=== PATIENT | female | born 1990 | race Caucasian/White ===

== ENCOUNTER 2018-11-23 21:47 | Emergency (ER) | payer SELFPAY, OTHER | END 2018-11-24 02:33 | disposition left against medical advice (07) | LOC: FTE 21:47 | DX: Z53.21 Procedure and treatment not carried out due to patient leaving prior to being seen by health care provider (principal) ==

== ENCOUNTER 2019-02-28 13:49 | Inpatient (IN) | payer MEDICAID, OTHER ==
[2019-02-28] MEDS: SOD CHLORIDE 0.9% 1,000 ML IV (15:45)
[2019-02-28 15:47] LABS: ADD MAN DIFF? NO
[2019-02-28 15:48] LABS: WHITE BLOOD COUNT 15.2 10^3/ul (4.8-10.8)
[2019-02-28 15:48] LABS: BASOPHILS % 0.2 % (0.0-2.0); EOSINOPHILS % 0.1 % (0.0-7.0); HEMATOCRIT 31.1 % (37.0-47.0); HEMOGLOBIN 10.3 g/dl (12.0-16.0); LYMPHOCYTES # 0.8 10^3/ul (0.8-2.9); LYMPHOCYTES % 5.1 % (15.0-51.0); MEAN CORPUSCULAR HEMOGLOBIN 27.2 pg (29.0-33.0); MEAN CORPUSCULAR HGB CONC 33.1 g/dl (32.0-37.0); MEAN CORPUSCULAR VOLUME 82.1 fl (82.0-101.0); MEAN PLATELET VOLUME 10.1 fl (7.4-10.4); MONOCYTE # 1.3 10^3/ul (0.3-0.9); MONOCYTES % 8.6 % (0.0-11.0); NEUTROPHIL # 12.8 10^3/ul (1.6-7.5); NEUTROPHILS % 84.5 % (39.0-77.0); PLATELET COUNT 250 10^3/UL (140-415); RED BLOOD COUNT 3.79 10^6/ul (4.20-5.40); RED CELL DISTRIBUTION WIDTH 12.5 % (11.5-14.5)
[2019-02-28] MEDS: KETOROLAC 30 MG INJ IV (15:50)
[2019-02-28 15:57] LABS: ADD UMIC YES; UR ASCORBIC ACID NEGATIVE (NEGATIVE); UR BACTERIA MANY /HPF (NONE SEEN); UR BILIRUBIN (Dip) NEGATIVE (NEGATIVE); UR BLOOD (Dip) 1+ mg/dL (NEGATIVE); UR CLARITY TURBID (CLEAR); UR COLOR AMBER (YELLOW); UR GLUCOSE (Dip) 3+ mg/dL (NEGATIVE); UR KETONES (Dip) TRACE mg/dL (NEGATIVE); UR LEUKOCYTE ESTERASE (Dip) 3+ Leu/ul (NEGATIVE); UR NITRITE (Dip) POSITIVE (NEGATIVE); UR RBC 4 /HPF (0-5); UR SPECIFIC GRAVITY (Dip) 1.011 (1.003-1.030); UR SQUAMOUS EPITHELIAL CELL MODERATE /HPF (FEW); UR TOTAL PROTEIN (Dip) 2+ mg/dl (NEGATIVE); UR UROBILINOGEN (Dip) 1+ mg/dL (NEGATIVE); UR WBC > 182 /HPF (0-5)
[2019-02-28 16:12] LABS: ALANINE AMINOTRANSFERASE 29 IU/L (13-69); ALBUMIN 3.5 g/dl (3.3-4.9); ALKALINE PHOSPHATASE 114 IU/L (42-121); ANION GAP 8 (5-13); ASPARTATE AMINO TRANSFERASE 19 IU/L (15-46); BLOOD UREA NITROGEN 3 mg/dl (7-20); CALCIUM 8.7 mg/dl (8.4-10.2); CARBON DIOXIDE 22 mmol/L (21-31); CHLORIDE 106 mmol/L (97-110); CREATININE 0.44 mg/dl (0.44-1.00); Estimated GFR > 60 mL/min (>60); GLUCOSE 139 mg/dl (70-220); POTASSIUM 3.5 mmol/L (3.5-5.1); SODIUM 136 mmol/L (135-144)
[2019-02-28] MEDS: CEFTRIAXONE 1 GM/50 ML (PMX) 50 ML IVPB (18:13)
[2019-02-28 19:00] LABS: LACTIC ACID 1.2 mmol/L (0.5-2.0)
[2019-02-28] MEDS: morphine 2 MG INJ IV (19:06)
[2019-02-28] MEDS ORDERED: ONDANSETRON 4 MG INJ IV (20:00)
[2019-02-28 20:40] LABS: LACTIC ACID 0.8 mmol/L (0.5-2.0)
[2019-03-01] MEDS: ACETAMINOPHEN 325 MG TAB PO (02:39)
[2019-03-01] MEDS ORDERED: HYDROCODONE/APAP (5/325) TAB PO (08:00)
[2019-03-01] MEDS ORDERED: SOD CHLORIDE 0.9% 1,000 ML IV (09:00)
[2019-03-01] MEDS ORDERED: ACETAMINOPHEN 325 MG TAB PO ×2 (09:00)
== END 2019-03-01 08:08 | disposition home or self-care (01) | DRG 833 ==
LOC: L-D 19:33 → FTE 13:49 → L-D 03-01 02:55
DX: O23.03 Infections of kidney in pregnancy, third trimester (principal); O09.33 Supervision of pregnancy with insufficient antenatal care, third trimester; Z3A.31 31 weeks gestation of pregnancy
CPT/HCPCS: 36415; 76805; 80053; 81001; 81025; 83605; 84702; 85025; 87040-91; 87086; 96361; 96365; 96375; 99285-25

== ENCOUNTER 2019-03-01 03:27 | Inpatient (IN) | payer MEDICAID ==
[2019-03-01] MEDS: SOD CHLORIDE 0.9% 1,000 ML IV ×6 (04:15→20:54)
[2019-03-01] MEDS: PRENATAL VITAMIN PO (09:29)
[2019-03-01] MEDS: LACTATED RINGER'S 1,000 ML IV (09:29)
[2019-03-01] MEDS: ACETAMINOPHEN 325 MG TAB PO ×2 (09:30→15:46)
[2019-03-01 10:24] LABS: INR 0.99; PROTIME 13.2 Sec (11.9-14.9)
[2019-03-01 10:25] LABS: PARTIAL THROMBOPLASTIN TIME 34.3 Sec (23.0-35.0)
[2019-03-01 11:02] LABS: ADD MAN DIFF? NO
[2019-03-01 11:05] LABS: BASOPHILS % 0.2 % (0.0-2.0); EOSINOPHILS % 0.2 % (0.0-7.0); HEMATOCRIT 27.9 % (37.0-47.0); HEMOGLOBIN 9.1 g/dl (12.0-16.0); LYMPHOCYTES # 0.7 10^3/ul (0.8-2.9); LYMPHOCYTES % 6.1 % (15.0-51.0); MEAN CORPUSCULAR HEMOGLOBIN 27.5 pg (29.0-33.0); MEAN CORPUSCULAR HGB CONC 32.6 g/dl (32.0-37.0); MEAN CORPUSCULAR VOLUME 84.3 fl (82.0-101.0); MEAN PLATELET VOLUME 10.7 fl (7.4-10.4); MONOCYTE # 1.1 10^3/ul (0.3-0.9); MONOCYTES % 9.9 % (0.0-11.0); NEUTROPHIL # 9.4 10^3/ul (1.6-7.5); NEUTROPHILS % 82.4 % (39.0-77.0); PLATELET COUNT 186 10^3/UL (140-415); RED BLOOD COUNT 3.31 10^6/ul (4.20-5.40); RED CELL DISTRIBUTION WIDTH 12.8 % (11.5-14.5)
[2019-03-01 11:05] LABS: WHITE BLOOD COUNT 11.4 10^3/ul (4.8-10.8)
[2019-03-01 14:16] LABS: HEPATITIS B SURFACE ANTIGEN NEGATIVE (NEGATIVE)
[2019-03-01 14:25] LABS: HIV 1&2 ANTIBODY NEGATIVE (NEGATIVE)
[2019-03-01] MEDS: CEFTRIAXONE 1 GM/50 ML (PMX) 50 ML IVPB (17:49)
[2019-03-01 22:09] LABS: RAPID PLASMA REAGIN NONREACTIVE (NR)
[2019-03-02] MEDS: ACETAMINOPHEN 325 MG TAB PO ×4 (00:31→20:26)
[2019-03-02] MEDS: SOD CHLORIDE 0.9% 1,000 ML IV ×3 (01:00→16:31)
[2019-03-02 03:02] LABS: BARBITURATES Negative (NEGATIVE); BENZODIAZEPINES Negative (NEGATIVE); CANNABINOIDS Negative (NEGATIVE); COCAINE Negative (NEGATIVE); OPIATES Negative (NEGATIVE)
[2019-03-02 03:30] LABS: AMPHETAMINE/METHAMPHETAMINE POSITIVE (NEGATIVE)
[2019-03-02 12:26] LABS: RUBELLA ANTIBODY - IGM <20.00 AU/mL
[2019-03-02] MEDS: PRENATAL VITAMIN PO (13:08)
[2019-03-02] MEDS: CEFTRIAXONE 1 GM/50 ML (PMX) 50 ML IVPB (19:33)
[2019-03-02 21:08] LABS: RUBELLA ANTIBODY - IGG 1.77 index
[2019-03-03] MEDS: SOD CHLORIDE 0.9% 1,000 ML IV ×4 (01:00→17:19)
[2019-03-03] MEDS: PRENATAL VITAMIN PO (09:19)
[2019-03-03] MEDS: CEFTRIAXONE 1 GM/50 ML (PMX) 50 ML IVPB (19:36)
[2019-03-04] MEDS: SOD CHLORIDE 0.9% 1,000 ML IV (02:35)
== END 2019-03-04 08:57 | disposition home or self-care (01) | DRG 690 ==
LOC: OBT 03:27 → L-D 03:27 → OBT 03:28 → L-D 03:28
PROVIDERS: Obstetrics & Gynecology Obstetrics
DX: N12 Tubulo-interstitial nephritis, not specified as acute or chronic (principal); B96.20 Unspecified Escherichia coli [E. coli] as the cause of diseases classified elsewhere; O34.211 Maternal care for low transverse scar from previous cesarean delivery
CPT/HCPCS: 76775; 76817; 76818; 80307; 85025; 85610; 85730; 86592; 86703; 86762; 86850; 86900; 86901; 87040-91; 87086; 87340; 87536

== ENCOUNTER 2019-04-02 16:32 | Outpatient (CLI) | payer SELFPAY | END 2019-04-02 20:10 | disposition home or self-care (01) | LOC: OBT 16:32 → L-D 16:36 → OBT 20:10 | DX: O26.893 Other specified pregnancy related conditions, third trimester (principal); M54.5 Low back pain; Z3A.36 36 weeks gestation of pregnancy | CPT/HCPCS: 76815; 76818; 85460; 86900; 86901 ==

== ENCOUNTER 2019-04-08 00:43 | Outpatient (CLI) | payer MEDICAID ==
[2019-04-08 01:58] LABS: ADD UMIC YES; UR ASCORBIC ACID NEGATIVE (NEGATIVE); UR BACTERIA FEW /HPF (NONE SEEN); UR BILIRUBIN (Dip) NEGATIVE (NEGATIVE); UR BLOOD (Dip) NEGATIVE (NEGATIVE); UR CLARITY CLOUDY (CLEAR); UR COLOR YELLOW (YELLOW); UR GLUCOSE (Dip) NEGATIVE (NEGATIVE); UR KETONES (Dip) NEGATIVE (NEGATIVE); UR LEUKOCYTE ESTERASE (Dip) 3+ Leu/ul (NEGATIVE); UR MUCUS FEW /HPF (NONE SEEN); UR NITRITE (Dip) NEGATIVE (NEGATIVE); UR RBC 12 /HPF (0-5); UR SPECIFIC GRAVITY (Dip) 1.018 (1.003-1.030); UR SQUAMOUS EPITHELIAL CELL FEW /HPF (FEW); UR TOTAL PROTEIN (Dip) NEGATIVE (NEGATIVE); UR UROBILINOGEN (Dip) NEGATIVE (NEGATIVE); UR WBC 12 /HPF (0-5)
== END 2019-04-08 02:06 | disposition home or self-care (01) ==
LOC: OBT 00:43 → L-D 00:44 → OBT 02:06
DX: O26.893 Other specified pregnancy related conditions, third trimester (principal); R20.0 Anesthesia of skin; M54.9 Dorsalgia, unspecified; O24.410 Gestational diabetes mellitus in pregnancy, diet controlled; Z3A.36 36 weeks gestation of pregnancy
CPT/HCPCS: 76818; 81001; 87086

== ENCOUNTER 2019-04-09 15:29 | Outpatient (CLI) | payer SELFPAY, MEDICAID | END 2019-04-09 17:55 | disposition left against medical advice (07) | LOC: OBT 15:29 → L-D 15:31 → OBT 17:55 | DX: Z53.21 Procedure and treatment not carried out due to patient leaving prior to being seen by health care provider (principal); O24.410 Gestational diabetes mellitus in pregnancy, diet controlled; Z3A.37 37 weeks gestation of pregnancy | CPT/HCPCS: 76818 ==

== ENCOUNTER 2019-04-12 12:29 | Outpatient (CLI) | payer SELFPAY | END 2019-04-12 15:20 | disposition home or self-care (01) | LOC: OBT 12:29 → L-D 12:32 → OBT 15:20 | DX: O24.419 Gestational diabetes mellitus in pregnancy, unspecified control (principal); Z3A.35 35 weeks gestation of pregnancy | CPT/HCPCS: 76818; 82962 ==

== ENCOUNTER 2019-04-16 16:19 | Outpatient (CLI) | payer SELFPAY | END 2019-04-16 18:59 | disposition home or self-care (01) | LOC: OBT 16:19 → L-D 16:20 → OBT 18:59 | DX: O24.419 Gestational diabetes mellitus in pregnancy, unspecified control (principal); O36.8330 Maternal care for abnormalities of the fetal heart rate or rhythm, third trimester, not applicable or unspecified; Z3A.38 38 weeks gestation of pregnancy | CPT/HCPCS: 76818; 82962 ==